=== PATIENT | male | born 1960 | race Caucasian/White ===

== ENCOUNTER 2022-06-16 05:41 | Inpatient (IN) | payer OTHER, MEDICAID ==
[~2022-06-16] VITALS: Ht 182.9 cm; Wt 106.3 kg
[2022-06-16 07:40] LABS: BUN/Creatinine Ratio 26.1; Potassium 4.4 mmol/L (3.5-5.1)
[2022-06-16 07:45] LABS: Total Protein 9.8 g/dL (6.4-8.2)
[2022-06-16 07:46] LABS: Basophils # (auto) 0.1 10 ^3/uL (0-0.2); Eosinophils # (auto) 0 10 ^3/uL (0-0.8); Eosinophils % (auto) 0.2 % (0.0-7.0); Hematocrit 42.4 % (41.0-53.0); Monocytes # (auto) 1.7 10 ^3/uL (0-1.3)
[2022-06-16 07:48] LABS: Basophils % (auto) 0.4 % (0.0-2.0); Hemoglobin 13.5 g/dL (13.5-17.5); Lymphocytes # (auto) 2.2 10 ^3/uL (0.4-5.4); Lymphocytes % (auto) 8.8 % (10.0-50.0); Mean Corpuscular Hgb Conc. 31.9 g/dL (32.0-36.0); Mean Corpuscular Volume 87.8 fL (80.0-100.0); Monocytes % (auto) 7.1 % (0.0-12.0); Neutrophils # (auto) 20.5 10 ^3/uL (1.6-8.6); Neutrophils % (auto) 83.5 % (37.0-80.0); Red Blood Cells 4.83 10^6/uL (4.5-5.90); Red Cell Distribution Width 14.2 % (11.8-14.3); White Blood Cell 24.6 10^3/uL (4.4-10.8)
[2022-06-16 07:49] LABS: Albumin 2.4 g/dL (3.4-5.0)
[2022-06-16] MEDS ORDERED: VANCOMYCIN 1GM/250ML 250 ML IV ONE (09:45)
[2022-06-16] MEDS ORDERED: SODIUM CHLORIDE 0.9% 1,000 ML IVB ONE (09:45)
[2022-06-16] MEDS ORDERED: ASPirin 81 mg TAB PO ONE (09:45)
[2022-06-16] MEDS ORDERED: DEXTROSE (50%) 50ML SYRG IV PRN (14:00)
[2022-06-16] MEDS ORDERED: SODIUM CHLORIDE 0.9% 1,000 ML IV ONE ×2 (14:00)
[2022-06-16] MEDS: PIPERACILLIN-TAZOB 3.375GM 100 ML IV SCH ×2 (14:29→21:44)
[2022-06-16 14:30] LABS: Urine Bacteria MANY /hpf (None Seen); Urine Blood TRACE /uL (Negative); Urine Mucus FEW (None Seen); Urine Specific Gravity 1.023 (1.001-1.035); Urine WBC 20 /hpf (0 - 3)
[2022-06-16 14:58] LABS: Cholesterol 163 mg/dL (< 200); HDL Cholesterol 23 mg/dL (40-59); LDL Cholesterol 115 mg/dL (< 100); Triglycerides 228 mg/dL (< 150)
[2022-06-16 15:10] LABS: INR 1.24 (0.9-1.15)
[2022-06-16 16:52] VITALS: BP 141/80
[2022-06-16] MEDS: ACCU-CHEK COMFORT CURVE STRIP VI SCH ×2 (17:35→22:50)
[2022-06-16] MEDS: InsuLIN REG 1unit/0.01ml Soln (100units/ml) SC SCH ×2 (17:58→22:54)
[2022-06-16 20:00] VITALS: BP 111/53
[2022-06-16 22:00] VITALS: BP 111/53
[2022-06-17 05:00] VITALS: BP 116/45
[2022-06-17] MEDS: PIPERACILLIN-TAZOB 3.375GM 100 ML IV SCH ×3 (05:34→23:27)
[2022-06-17] MEDS: ACCU-CHEK COMFORT CURVE STRIP VI SCH ×4 (06:10→22:29)
[2022-06-17] MEDS: InsuLIN REG 1unit/0.01ml Soln (100units/ml) SC SCH ×4 (06:11→22:33)
[2022-06-17 06:29] LABS: Basophils # (auto) 0.1 10 ^3/uL (0-0.2); Basophils % (auto) 0.5 % (0.0-2.0); Eosinophils # (auto) 0.1 10 ^3/uL (0-0.8); Eosinophils % (auto) 0.5 % (0.0-7.0); Monocytes # (auto) 1.6 10 ^3/uL (0-1.3)
[2022-06-17 06:32] LABS: Hematocrit 38.8 % (41.0-53.0); Hemoglobin 12.7 g/dL (13.5-17.5); Lymphocytes % (auto) 8.9 % (10.0-50.0); Mean Corpuscular Hemoglobin 28.6 pg (28.0-32.0); Mean Corpuscular Hgb Conc. 32.7 g/dL (32.0-36.0); Mean Corpuscular Volume 87.2 fL (80.0-100.0); Monocytes % (auto) 7.3 % (0.0-12.0); Neutrophils # (auto) 18.4 10 ^3/uL (1.6-8.6); Neutrophils % (auto) 82.8 % (37.0-80.0); Red Blood Cells 4.45 10^6/uL (4.5-5.90); White Blood Cell 22.2 10^3/uL (4.4-10.8)
[2022-06-17 06:47] LABS: Chloride 101 mmol/L (98-107); Potassium 3.9 mmol/L (3.5-5.1); Sodium 135 mmol/L (136-145)
[2022-06-17 06:54] LABS: Alanine Aminotransferase 59 U/L (16-61); BUN/Creatinine Ratio 25.9; Blood Urea Nitrogen 28 mg/dL (7-18); Calcium 9.4 mg/dL (8.5-10.1); Carbon Dioxide 24 mmol/L (21-32); GFR African American 89 mL/min; GFR Non-African American 74 mL/min; Glucose 176 mg/dL (74-106)
[2022-06-17 07:01] LABS: Alkaline Phosphatase 129 U/L (45-117); Aspartate Aminotransferase 33 U/L (15-37); Bilirubin, Total 0.7 mg/dL (0.2-1.0); Total Protein 8.8 g/dL (6.4-8.2)
[2022-06-17 08:59] LABS: Anion Gap 10 (5-15)
[2022-06-17 09:00] VITALS: BP 114/53
[2022-06-17] MEDS ORDERED: VANCOMYCIN PER PHARMACY 0 MG IV SCH (10:15)
[2022-06-17] MEDS: ENOXAPARIN SOD 40 MG/0.4 ML SYRINGE SC SCH (11:06)
[2022-06-17] MEDS: VANCOMYCIN 1GM/250ML 250 ML IV SCH ×2 (11:07→20:46)
[2022-06-17 13:00] VITALS: BP 144/60
[2022-06-17 17:00] VITALS: BP 125/81
[2022-06-17 20:00] VITALS: BP 111/53
[2022-06-17 22:00] VITALS: BP 128/68
[2022-06-17] MEDS: MORPHINE SULFATE INJ 2 MG/ml SYRG IV PRN (22:30)
[2022-06-18] MEDS: VANCOMYCIN 1GM/250ML 250 ML IV SCH ×3 (04:45→22:59)
[2022-06-18] MEDS: MORPHINE SULFATE INJ 2 MG/ml SYRG IV PRN ×3 (04:46→20:48)
[2022-06-18 05:00] VITALS: BP 127/73
[2022-06-18 06:22] LABS: Basophils # (auto) 0.1 10 ^3/uL (0-0.2); Basophils % (auto) 0.5 % (0.0-2.0); Eosinophils # (auto) 0.2 10 ^3/uL (0-0.8); Eosinophils % (auto) 1.4 % (0.0-7.0); Hematocrit 33.5 % (41.0-53.0); Hemoglobin 10.8 g/dL (13.5-17.5); Lymphocytes # (auto) 2.3 10 ^3/uL (0.4-5.4); Lymphocytes % (auto) 14.2 % (10.0-50.0); Mean Corpuscular Hemoglobin 27.9 pg (28.0-32.0); Mean Corpuscular Hgb Conc. 32.3 g/dL (32.0-36.0); Mean Corpuscular Volume 86.5 fL (80.0-100.0); Monocytes # (auto) 1.4 10 ^3/uL (0-1.3); Monocytes % (auto) 8.3 % (0.0-12.0); Neutrophils # (auto) 12.3 10 ^3/uL (1.6-8.6); Neutrophils % (auto) 75.6 % (37.0-80.0); Red Blood Cells 3.88 10^6/uL (4.5-5.90); White Blood Cell 16.2 10^3/uL (4.4-10.8)
[2022-06-18] MEDS: PIPERACILLIN-TAZOB 3.375GM 100 ML IV SCH (06:23)
[2022-06-18] MEDS: InsuLIN REG 1unit/0.01ml Soln (100units/ml) SC SCH ×4 (06:23→21:36)
[2022-06-18 06:30] LABS: BUN/Creatinine Ratio 19.6; Calcium 8.9 mg/dL (8.5-10.1); Potassium 3.9 mmol/L (3.5-5.1)
[2022-06-18] MEDS: ACCU-CHEK COMFORT CURVE STRIP VI SCH ×4 (06:58→21:43)
[2022-06-18 09:00] VITALS: BP 128/74
[2022-06-18] MEDS: ENOXAPARIN SOD 40 MG/0.4 ML SYRINGE SC SCH (09:01)
[2022-06-18 13:00] VITALS: BP 150/76
[2022-06-18] MEDS: cefTRIAXone 1GM/50ML D5W 50 ML IV SCH (15:23)
[2022-06-18] MEDS: INSULIN LANTUS (GLARGINE) 1 /0.01ml (100units/ml) SC SCH (16:58)
[2022-06-18 17:00] VITALS: BP 121/68
[2022-06-18] MEDS: ATORVASTATIN 20 MG TAB PO SCH (21:32)
[2022-06-18] MEDS: metroNIDAZOLE 500 MG TAB PO SCH (21:32)
[2022-06-18 22:00] VITALS: BP 117/61
[2022-06-19 05:00] VITALS: BP 119/60
[2022-06-19] MEDS: metroNIDAZOLE 500 MG TAB PO SCH ×3 (06:00→22:27)
[2022-06-19 06:10] LABS: Basophils # (auto) 0.1 10 ^3/uL (0-0.2); Basophils % (auto) 0.4 % (0.0-2.0); Hemoglobin 11.1 g/dL (13.5-17.5); Mean Corpuscular Volume 87.1 fL (80.0-100.0)
[2022-06-19 06:12] LABS: Eosinophils # (auto) 0.2 10 ^3/uL (0-0.8); Eosinophils % (auto) 1.6 % (0.0-7.0); Hematocrit 32.8 % (41.0-53.0); Lymphocytes % (auto) 13.7 % (10.0-50.0); Mean Corpuscular Hemoglobin 29.5 pg (28.0-32.0); Mean Corpuscular Hgb Conc. 33.9 g/dL (32.0-36.0); Monocytes # (auto) 1.3 10 ^3/uL (0-1.3); Monocytes % (auto) 9.3 % (0.0-12.0); Neutrophils # (auto) 10.9 10 ^3/uL (1.6-8.6); Red Blood Cells 3.76 10^6/uL (4.5-5.90); Red Cell Distribution Width 14.4 % (11.8-14.3); White Blood Cell 14.5 10^3/uL (4.4-10.8)
[2022-06-19 06:26] LABS: BUN/Creatinine Ratio 13.8; Calcium 9.4 mg/dL (8.5-10.1); Potassium 4.3 mmol/L (3.5-5.1)
[2022-06-19] MEDS: ACCU-CHEK COMFORT CURVE STRIP VI SCH ×4 (06:28→22:24)
[2022-06-19] MEDS: InsuLIN REG 1unit/0.01ml Soln (100units/ml) SC SCH ×4 (06:44→22:27)
[2022-06-19] MEDS: cefTRIAXone 1GM/50ML D5W 50 ML IV SCH (07:52)
[2022-06-19] MEDS: VANCOMYCIN 1GM/250ML 250 ML IV SCH ×2 (07:55→17:15)
[2022-06-19] MEDS: ENOXAPARIN SOD 40 MG/0.4 ML SYRINGE SC SCH (07:55)
[2022-06-19 09:00] VITALS: BP 146/79
[2022-06-19] MEDS ORDERED: LIDOCAINE 1%HCL (LOCAL ANESTH) 10 ML MDV ONE (09:07)
[2022-06-19] MEDS ORDERED: ROPIVACAINE 0.5% (5MG/ML) 20ML AMPULE IJ ONE (09:07)
[2022-06-19] MEDS ORDERED: MIDAZOLAM HCL 2MG/2ML 2ml VIAL (1mg/ml) ONE (09:24)
[2022-06-19] MEDS ORDERED: fentaNYL CITRATE 100 MCG/2 ML VL ONE (09:24)
[2022-06-19] MEDS ORDERED: LIDOCAINE 2% (LOCAL ANESTH.) PF 5ml SDV ONE (09:25)
[2022-06-19] MEDS ORDERED: PROPOFOL 10 MG/ML 20 ML IV ONE (09:25)
[2022-06-19] MEDS ORDERED: ONDANSETRON HCL 4 MG/2 ML VIAL ONE (09:25)
[2022-06-19] MEDS ORDERED: DAKINS QUARTER STR 0.125% (NaHypochlorite) 473 ML TOPICAL SOL TOP ONE (10:00)
[2022-06-19] MEDS ORDERED: HYDROmorphone HCL 2 MG/ML VL/or syr IV PRN (10:45)
[2022-06-19] MEDS ORDERED: ONDANSETRON HCL 4 MG/2 ML VIAL IV PRN (10:45)
[2022-06-19] MEDS: HYDROmorphone HCL 2 MG/ML VL/or syr IV PRN ×3 (12:05→12:22)
[2022-06-19] MEDS: INSULIN LANTUS (GLARGINE) 1 /0.01ml (100units/ml) SC SCH (13:36)
[2022-06-19] MEDS: MORPHINE SULFATE INJ 2 MG/ml SYRG IV PRN ×3 (15:02→23:45)
[2022-06-19 17:00] VITALS: BP 154/84
[2022-06-19 22:00] VITALS: BP 119/71
[2022-06-19] MEDS: ATORVASTATIN 20 MG TAB PO SCH (22:27)
[2022-06-20] VITALS (10 sets, daily range): BP systolic 119–150; BP diastolic 73–82
[2022-06-20] MEDS: VANCOMYCIN 1GM/250ML 250 ML IV SCH (01:58)
[2022-06-20] MEDS: MORPHINE SULFATE INJ 2 MG/ml SYRG IV PRN ×2 (05:51→23:46)
[2022-06-20] MEDS: metroNIDAZOLE 500 MG TAB PO SCH (06:00)
[2022-06-20] MEDS: InsuLIN REG 1unit/0.01ml Soln (100units/ml) SC SCH ×4 (06:29→23:49)
[2022-06-20] MEDS: ACCU-CHEK COMFORT CURVE STRIP VI SCH ×4 (06:29→23:39)
[2022-06-20 06:45] LABS: Basophils # (auto) 0.1 10 ^3/uL (0-0.2); Basophils % (auto) 0.6 % (0.0-2.0); Eosinophils # (auto) 0.2 10 ^3/uL (0-0.8); Eosinophils % (auto) 1.1 % (0.0-7.0); Hematocrit 31.8 % (41.0-53.0); Hemoglobin 10.6 g/dL (13.5-17.5); Lymphocytes # (auto) 1.8 10 ^3/uL (0.4-5.4); Lymphocytes % (auto) 11.7 % (10.0-50.0); Mean Corpuscular Hemoglobin 28.7 pg (28.0-32.0); Mean Corpuscular Hgb Conc. 33.4 g/dL (32.0-36.0); Monocytes % (auto) 13.2 % (0.0-12.0); Neutrophils # (auto) 11.2 10 ^3/uL (1.6-8.6); Neutrophils % (auto) 73.4 % (37.0-80.0); Red Cell Distribution Width 14.2 % (11.8-14.3); White Blood Cell 15.3 10^3/uL (4.4-10.8)
[2022-06-20 07:15] LABS: BUN/Creatinine Ratio 9.8; Potassium 4.4 mmol/L (3.5-5.1)
[2022-06-20] MEDS: cefTRIAXone 1GM/50ML D5W 50 ML IV SCH (09:00)
[2022-06-20] MEDS: ENOXAPARIN SOD 40 MG/0.4 ML SYRINGE SC SCH (10:00)
[2022-06-20] MEDS: INSULIN LANTUS (GLARGINE) 1 /0.01ml (100units/ml) SC SCH (10:00)
[2022-06-20] MEDS ORDERED: ANGIOMAX 250 MG VIAL IV ONE (14:01)
[2022-06-20] MEDS ORDERED: fentaNYL CITRATE 100 MCG/2 ML VL ONE (14:02)
[2022-06-20] MEDS ORDERED: IOHEXOL 350 MG/ML 100ML IJ ONE (14:02)
[2022-06-20] MEDS ORDERED: LIDOCAINE 2%HCL (LOCAL ANESTH.) INJ 20ML MDV ONE (14:02)
[2022-06-20] MEDS ORDERED: SODIUM CHL 0.9% 0 ML ONE (14:02)
[2022-06-20] MEDS ORDERED: MIDAZOLAM HCL 2MG/2ML 2ml VIAL (1mg/ml) ONE (14:02)
[2022-06-20] MEDS: AMPICILLIN & SULBACTAM SODIUM 3 GM in SODIUM CHL 0.9% 100 ML IV SCH ×2 (16:36→21:00)
[2022-06-20] MEDS: Pro-Stat SF 30ml Vanilla PO SCH (18:00)
[2022-06-20] MEDS: Juven Orange Powder PACKET 27.5gm PO SCH (18:00)
[2022-06-20] MEDS: DAKINS QUARTER STR 0.125% (NaHypochlorite) 473 ML TOPICAL SOL TOP SCH (22:00)
[2022-06-20] MEDS: ATORVASTATIN 20 MG TAB PO SCH (22:00)
[2022-06-21] MEDS: MORPHINE SULFATE INJ 2 MG/ml SYRG IV PRN ×2 (03:20→07:11)
[2022-06-21] MEDS: AMPICILLIN & SULBACTAM SODIUM 3 GM in SODIUM CHL 0.9% 100 ML IV SCH ×4 (03:37→20:54)
[2022-06-21 05:00] VITALS: BP 175/72
[2022-06-21 06:21] LABS: BUN/Creatinine Ratio 11.6; Calcium 9.3 mg/dL (8.5-10.1); Potassium 4.5 mmol/L (3.5-5.1)
[2022-06-21] MEDS: InsuLIN REG 1unit/0.01ml Soln (100units/ml) SC SCH ×4 (06:41→21:57)
[2022-06-21] MEDS: ACCU-CHEK COMFORT CURVE STRIP VI SCH ×4 (06:42→21:56)
[2022-06-21 06:54] LABS: Basophils # (auto) 0.1 10 ^3/uL (0-0.2); Eosinophils # (auto) 0.3 10 ^3/uL (0-0.8); Monocytes # (auto) 1.7 10 ^3/uL (0-1.3)
[2022-06-21 06:56] LABS: Basophils % (auto) 0.5 % (0.0-2.0); Eosinophils % (auto) 1.8 % (0.0-7.0); Hematocrit 31.8 % (41.0-53.0); Hemoglobin 10.9 g/dL (13.5-17.5); Lymphocytes # (auto) 1.6 10 ^3/uL (0.4-5.4); Lymphocytes % (auto) 10.9 % (10.0-50.0); Mean Corpuscular Hemoglobin 29.6 pg (28.0-32.0); Mean Corpuscular Hgb Conc. 34.1 g/dL (32.0-36.0); Mean Corpuscular Volume 86.6 fL (80.0-100.0); Monocytes % (auto) 11.8 % (0.0-12.0); Red Blood Cells 3.67 10^6/uL (4.5-5.90); Red Cell Distribution Width 14.1 % (11.8-14.3); White Blood Cell 14.7 10^3/uL (4.4-10.8)
[2022-06-21] MEDS: Juven Orange Powder PACKET 27.5gm PO SCH ×2 (08:26→18:06)
[2022-06-21] MEDS: Pro-Stat SF 30ml Vanilla PO SCH ×2 (08:27→18:06)
[2022-06-21 09:00] VITALS: BP 122/60
[2022-06-21] MEDS: ASPirin 81 mg TAB PO SCH (10:30)
[2022-06-21] MEDS: DAKINS QUARTER STR 0.125% (NaHypochlorite) 473 ML TOPICAL SOL TOP SCH ×2 (10:30→22:00)
[2022-06-21] MEDS: ENOXAPARIN SOD 40 MG/0.4 ML SYRINGE SC SCH (10:30)
[2022-06-21] MEDS: INSULIN LANTUS (GLARGINE) 1 /0.01ml (100units/ml) SC SCH (10:31)
[2022-06-21] MEDS: HYDROcodone-ACET 5/325MG TAB PO PRN ×2 (10:40→21:05)
[2022-06-21 13:00] VITALS: BP 126/67
[2022-06-21 13:24] LABS: INR 1.12 (0.9-1.15); Partial Thromboplastin Time 32.4 sec (24.6-33.4)
[2022-06-21 16:59] VITALS: BP 106/69
[2022-06-21] MEDS: ATORVASTATIN 20 MG TAB PO SCH (21:56)
[2022-06-21 23:51] VITALS: BP 136/86
[2022-06-22] MEDS: AMPICILLIN & SULBACTAM SODIUM 3 GM in SODIUM CHL 0.9% 100 ML IV SCH ×4 (03:13→20:51)
[2022-06-22] MEDS: HYDROcodone-ACET 5/325MG TAB PO PRN ×3 (04:49→21:10)
[2022-06-22 05:12] LABS: Basophils # (auto) 0.1 10 ^3/uL (0-0.2); Eosinophils # (auto) 0.4 10 ^3/uL (0-0.8); Eosinophils % (auto) 3.5 % (0.0-7.0); Monocytes # (auto) 1.1 10 ^3/uL (0-1.3); Neutrophils # (auto) 8.6 10 ^3/uL (1.6-8.6); White Blood Cell 12.2 10^3/uL (4.4-10.8)
[2022-06-22 05:15] LABS: Basophils % (auto) 0.9 % (0.0-2.0); Hematocrit 31.8 % (41.0-53.0); Hemoglobin 10.5 g/dL (13.5-17.5); Lymphocytes % (auto) 16.1 % (10.0-50.0); Mean Corpuscular Hemoglobin 28.3 pg (28.0-32.0); Mean Corpuscular Hgb Conc. 33.1 g/dL (32.0-36.0); Mean Corpuscular Volume 85.7 fL (80.0-100.0); Monocytes % (auto) 9.2 % (0.0-12.0); Neutrophils % (auto) 70.3 % (37.0-80.0); Red Blood Cells 3.72 10^6/uL (4.5-5.90)
[2022-06-22 05:34] LABS: Calcium 8.6 mg/dL (8.5-10.1); Potassium 4.2 mmol/L (3.5-5.1)
[2022-06-22 05:51] VITALS: BP 155/87
[2022-06-22] MEDS: ACCU-CHEK COMFORT CURVE STRIP VI SCH ×4 (06:38→21:10)
[2022-06-22] MEDS: InsuLIN REG 1unit/0.01ml Soln (100units/ml) SC SCH ×4 (06:38→21:14)
[2022-06-22] MEDS: Pro-Stat SF 30ml Vanilla PO SCH ×2 (08:00→18:00)
[2022-06-22] MEDS: Juven Orange Powder PACKET 27.5gm PO SCH ×2 (08:00→18:00)
[2022-06-22] MEDS: INSULIN LANTUS (GLARGINE) 1 /0.01ml (100units/ml) SC SCH (09:00)
[2022-06-22 09:12] VITALS: BP 143/83
[2022-06-22] MEDS: ASPirin 81 mg TAB PO SCH (09:45)
[2022-06-22] MEDS: ENOXAPARIN SOD 40 MG/0.4 ML SYRINGE SC SCH (09:45)
[2022-06-22] MEDS: DAKINS QUARTER STR 0.125% (NaHypochlorite) 473 ML TOPICAL SOL TOP SCH ×2 (10:00→22:00)
[2022-06-22 12:31] VITALS: BP 137/67
[2022-06-22 16:35] VITALS: BP 153/89
[2022-06-22] MEDS: ATORVASTATIN 20 MG TAB PO SCH (21:12)
[2022-06-22 22:00] VITALS: BP 163/94
[2022-06-23] MEDS: AMPICILLIN & SULBACTAM SODIUM 3 GM in SODIUM CHL 0.9% 100 ML IV SCH ×4 (02:46→21:00)
[2022-06-23] MEDS: HYDROcodone-ACET 5/325MG TAB PO PRN (02:51)
[2022-06-23 05:00] VITALS: BP 162/87
[2022-06-23] MEDS: ACCU-CHEK COMFORT CURVE STRIP VI SCH ×4 (06:02→22:15)
[2022-06-23] MEDS: InsuLIN REG 1unit/0.01ml Soln (100units/ml) SC SCH ×4 (06:02→22:15)
[2022-06-23] MEDS: Juven Orange Powder PACKET 27.5gm PO SCH ×2 (08:00→18:00)
[2022-06-23] MEDS: Pro-Stat SF 30ml Vanilla PO SCH ×2 (08:00→18:00)
[2022-06-23 09:00] VITALS: BP 139/87
[2022-06-23] MEDS: ASPirin 81 mg TAB PO SCH (09:46)
[2022-06-23] MEDS: ENOXAPARIN SOD 40 MG/0.4 ML SYRINGE SC SCH (09:46)
[2022-06-23] MEDS: INSULIN LANTUS (GLARGINE) 1 /0.01ml (100units/ml) SC SCH (09:53)
[2022-06-23] MEDS: DAKINS QUARTER STR 0.125% (NaHypochlorite) 473 ML TOPICAL SOL TOP SCH ×2 (10:00→22:00)
[2022-06-23 13:00] VITALS: BP 145/81
[2022-06-23 16:40] VITALS: BP 149/82
[2022-06-23 22:00] VITALS: BP 123/70
[2022-06-23] MEDS: ATORVASTATIN 20 MG TAB PO SCH (22:14)
[2022-06-24] MEDS: AMPICILLIN & SULBACTAM SODIUM 3 GM in SODIUM CHL 0.9% 100 ML IV SCH ×4 (03:41→21:35)
[2022-06-24 05:00] VITALS: BP 144/80
[2022-06-24] MEDS: ACCU-CHEK COMFORT CURVE STRIP VI SCH ×4 (06:48→21:46)
[2022-06-24] MEDS: InsuLIN REG 1unit/0.01ml Soln (100units/ml) SC SCH ×4 (06:48→21:48)
[2022-06-24 08:00] VITALS: BP 154/84
[2022-06-24] MEDS: Juven Orange Powder PACKET 27.5gm PO SCH ×2 (08:55→17:55)
[2022-06-24] MEDS: Pro-Stat SF 30ml Vanilla PO SCH ×2 (08:56→17:55)
[2022-06-24 09:00] VITALS: BP 154/84
[2022-06-24] MEDS: DAKINS QUARTER STR 0.125% (NaHypochlorite) 473 ML TOPICAL SOL TOP SCH ×2 (09:57→22:43)
[2022-06-24] MEDS: ENOXAPARIN SOD 40 MG/0.4 ML SYRINGE SC SCH (09:57)
[2022-06-24] MEDS: ASPirin 81 mg TAB PO SCH (09:57)
[2022-06-24] MEDS: MORPHINE SULFATE INJ 2 MG/ml SYRG IV PRN ×2 (09:58→21:36)
[2022-06-24] MEDS: INSULIN LANTUS (GLARGINE) 1 /0.01ml (100units/ml) SC SCH (10:01)
[2022-06-24 13:00] VITALS: BP 135/75
[2022-06-24 15:10] LABS: INR 1.08 (0.9-1.15)
[2022-06-24 15:11] LABS: Partial Thromboplastin Time 30.9 sec (24.6-33.4)
[2022-06-24 17:06] VITALS: BP 131/86
[2022-06-24] MEDS: ATORVASTATIN 20 MG TAB PO SCH (21:35)
[2022-06-24 22:00] VITALS: BP 157/93
[2022-06-25] MEDS: AMPICILLIN & SULBACTAM SODIUM 3 GM in SODIUM CHL 0.9% 100 ML IV SCH ×4 (03:01→21:05)
[2022-06-25 05:00] VITALS: BP 155/56
[2022-06-25] MEDS: hydrALAZINE HCL 20 MG/ML VL IV PRN (05:53)
[2022-06-25 06:00] LABS: Basophils # (auto) 0.1 10 ^3/uL (0-0.2); Mean Corpuscular Hemoglobin 27.8 pg (28.0-32.0); White Blood Cell 10.3 10^3/uL (4.4-10.8)
[2022-06-25 06:04] LABS: Basophils % (auto) 1.1 % (0.0-2.0); Eosinophils # (auto) 0.4 10 ^3/uL (0-0.8); Eosinophils % (auto) 3.5 % (0.0-7.0); Hematocrit 32.9 % (41.0-53.0); Hemoglobin 10.7 g/dL (13.5-17.5); Lymphocytes % (auto) 19.8 % (10.0-50.0); Mean Corpuscular Hgb Conc. 32.5 g/dL (32.0-36.0); Mean Corpuscular Volume 85.7 fL (80.0-100.0); Monocytes # (auto) 1.2 10 ^3/uL (0-1.3); Monocytes % (auto) 11.4 % (0.0-12.0); Neutrophils # (auto) 6.6 10 ^3/uL (1.6-8.6); Neutrophils % (auto) 64.2 % (37.0-80.0); Red Blood Cells 3.84 10^6/uL (4.5-5.90)
[2022-06-25 06:15] LABS: BUN/Creatinine Ratio 13.9; Calcium 8.9 mg/dL (8.5-10.1); Potassium 4.3 mmol/L (3.5-5.1)
[2022-06-25] MEDS: InsuLIN REG 1unit/0.01ml Soln (100units/ml) SC SCH ×4 (07:00→22:00)
[2022-06-25] MEDS: ACCU-CHEK COMFORT CURVE STRIP VI SCH ×4 (07:04→22:55)
[2022-06-25] MEDS: Juven Orange Powder PACKET 27.5gm PO SCH ×2 (08:05→17:32)
[2022-06-25] MEDS: Pro-Stat SF 30ml Vanilla PO SCH ×2 (08:05→17:32)
[2022-06-25 09:00] VITALS: BP 140/81
[2022-06-25] MEDS: HYDROcodone-ACET 5/325MG TAB PO PRN ×3 (09:11→20:16)
[2022-06-25] MEDS: ASPirin 81 mg TAB PO SCH (10:17)
[2022-06-25] MEDS: DAKINS QUARTER STR 0.125% (NaHypochlorite) 473 ML TOPICAL SOL TOP SCH ×2 (10:17→22:55)
[2022-06-25] MEDS: ENOXAPARIN SOD 40 MG/0.4 ML SYRINGE SC SCH (10:18)
[2022-06-25] MEDS: INSULIN LANTUS (GLARGINE) 1 /0.01ml (100units/ml) SC SCH (10:23)
[2022-06-25] MEDS: SODIUM CHLORIDE 0.9% 1,000 ML IV SCH ×2 (10:25→20:17)
[2022-06-25 12:41] VITALS: BP_SYST 129
[2022-06-25 17:15] VITALS: BP 150/93
[2022-06-25 22:00] VITALS: BP 142/83
[2022-06-25] MEDS: ATORVASTATIN 20 MG TAB PO SCH (22:27)
[2022-06-26] MEDS: HYDROcodone-ACET 5/325MG TAB PO PRN ×3 (01:59→21:45)
[2022-06-26] MEDS: AMPICILLIN & SULBACTAM SODIUM 3 GM in SODIUM CHL 0.9% 100 ML IV SCH ×4 (02:49→21:32)
[2022-06-26 05:00] VITALS: BP 174/84
[2022-06-26] MEDS: SODIUM CHLORIDE 0.9% 1,000 ML IV SCH ×2 (06:00→15:17)
[2022-06-26] MEDS: ACCU-CHEK COMFORT CURVE STRIP VI SCH ×4 (06:09→22:36)
[2022-06-26] MEDS: InsuLIN REG 1unit/0.01ml Soln (100units/ml) SC SCH ×4 (06:09→22:38)
[2022-06-26 09:00] VITALS: BP 159/87
[2022-06-26 09:27] LABS: Basophils # (auto) 0.1 10 ^3/uL (0-0.2); Basophils % (auto) 0.7 % (0.0-2.0); Eosinophils # (auto) 0.3 10 ^3/uL (0-0.8); Eosinophils % (auto) 4.3 % (0.0-7.0); Hematocrit 31.9 % (41.0-53.0); Hemoglobin 10.4 g/dL (13.5-17.5); Lymphocytes # (auto) 1.5 10 ^3/uL (0.4-5.4); Lymphocytes % (auto) 18.2 % (10.0-50.0); Mean Corpuscular Hemoglobin 28.6 pg (28.0-32.0); Mean Corpuscular Hgb Conc. 32.6 g/dL (32.0-36.0); Mean Corpuscular Volume 87.6 fL (80.0-100.0); Monocytes # (auto) 0.8 10 ^3/uL (0-1.3); Monocytes % (auto) 9.7 % (0.0-12.0); Neutrophils # (auto) 5.4 10 ^3/uL (1.6-8.6); Neutrophils % (auto) 67.1 % (37.0-80.0); Red Blood Cells 3.64 10^6/uL (4.5-5.90); Red Cell Distribution Width 14.1 % (11.8-14.3)
[2022-06-26] MEDS: ASPirin 81 mg TAB PO SCH (09:28)
[2022-06-26] MEDS: ENOXAPARIN SOD 40 MG/0.4 ML SYRINGE SC SCH (09:29)
[2022-06-26] MEDS: DAKINS QUARTER STR 0.125% (NaHypochlorite) 473 ML TOPICAL SOL TOP SCH ×2 (09:38→22:37)
[2022-06-26] MEDS: Juven Orange Powder PACKET 27.5gm PO SCH ×2 (09:38→18:01)
[2022-06-26] MEDS: Pro-Stat SF 30ml Vanilla PO SCH ×2 (09:38→18:01)
[2022-06-26 09:49] LABS: BUN/Creatinine Ratio 14.2; Calcium 7.5 mg/dL (8.5-10.1); Potassium 3.7 mmol/L (3.5-5.1)
[2022-06-26] MEDS: INSULIN LANTUS (GLARGINE) 1 /0.01ml (100units/ml) SC SCH (10:34)
[2022-06-26 13:00] VITALS: BP 162/86
[2022-06-26 17:09] VITALS: BP 141/84
[2022-06-26] MEDS ORDERED: LIDOCAINE 1% (LOCAL ANESTH.) PF 5ml SDV ID ONE (17:45)
[2022-06-26] MEDS: SODIUM CHLOR 0.9% PF (SALINE LOCK) 10ML VIAL/SYR IV SCH (21:44)
[2022-06-26] MEDS: ATORVASTATIN 20 MG TAB PO SCH (21:44)
[2022-06-26 22:00] VITALS: BP 157/85
[2022-06-27] MEDS: AMPICILLIN & SULBACTAM SODIUM 3 GM in SODIUM CHL 0.9% 100 ML IV SCH ×4 (02:52→21:02)
[2022-06-27] MEDS: SODIUM CHLORIDE 0.9% 1,000 ML IV SCH ×3 (03:57→21:02)
[2022-06-27 04:58] VITALS: BP 151/66
[2022-06-27 05:15] LABS: Basophils # (auto) 0.1 10 ^3/uL (0-0.2); Basophils % (auto) 0.8 % (0.0-2.0); Eosinophils # (auto) 0.5 10 ^3/uL (0-0.8); Eosinophils % (auto) 4.9 % (0.0-7.0); Hematocrit 33.9 % (41.0-53.0); Hemoglobin 11.1 g/dL (13.5-17.5); Mean Corpuscular Hgb Conc. 32.8 g/dL (32.0-36.0); Mean Corpuscular Volume 85.3 fL (80.0-100.0); Monocytes # (auto) 1.1 10 ^3/uL (0-1.3); Monocytes % (auto) 11.1 % (0.0-12.0); Neutrophils % (auto) 62.2 % (37.0-80.0); Red Blood Cells 3.97 10^6/uL (4.5-5.90); Red Cell Distribution Width 13.8 % (11.8-14.3); White Blood Cell 9.7 10^3/uL (4.4-10.8)
[2022-06-27 05:27] LABS: BUN/Creatinine Ratio 13.3; Calcium 8.7 mg/dL (8.5-10.1); Potassium 4.2 mmol/L (3.5-5.1)
[2022-06-27] MEDS: ACCU-CHEK COMFORT CURVE STRIP VI SCH ×4 (05:48→21:02)
[2022-06-27] MEDS: InsuLIN REG 1unit/0.01ml Soln (100units/ml) SC SCH ×4 (05:49→21:02)
[2022-06-27 08:51] VITALS: BP 158/87
[2022-06-27] MEDS: ENOXAPARIN SOD 40 MG/0.4 ML SYRINGE SC SCH (09:47)
[2022-06-27] MEDS: ASPirin 81 mg TAB PO SCH (09:47)
[2022-06-27] MEDS: HYDROcodone-ACET 5/325MG TAB PO PRN ×3 (09:48→21:51)
[2022-06-27] MEDS: Juven Orange Powder PACKET 27.5gm PO SCH ×2 (09:49→16:56)
[2022-06-27] MEDS: Pro-Stat SF 30ml Vanilla PO SCH ×2 (09:49→16:56)
[2022-06-27] MEDS: DAKINS QUARTER STR 0.125% (NaHypochlorite) 473 ML TOPICAL SOL TOP SCH ×2 (09:49→21:02)
[2022-06-27] MEDS: SODIUM CHLOR 0.9% PF (SALINE LOCK) 10ML VIAL/SYR IV SCH ×2 (09:49→21:02)
[2022-06-27] MEDS: INSULIN LANTUS (GLARGINE) 1 /0.01ml (100units/ml) SC SCH (10:00)
[2022-06-27] MEDS ORDERED: FLUCONAZOLE 200MG/100ML 100 ML IV ONE (12:00)
[2022-06-27 12:41] VITALS: BP 146/82
[2022-06-27 16:20] VITALS: BP 160/88
[2022-06-27] MEDS: ATORVASTATIN 20 MG TAB PO SCH (21:02)
[2022-06-27] MEDS: hydrALAZINE HCL 20 MG/ML VL IV PRN (21:51)
[2022-06-27 22:02] VITALS: BP 157/84
[2022-06-28] MEDS: AMPICILLIN & SULBACTAM SODIUM 3 GM in SODIUM CHL 0.9% 100 ML IV SCH ×2 (02:30→08:49)
[2022-06-28 05:33] LABS: Red Cell Distribution Width 13.9 % (11.8-14.3)
[2022-06-28 05:34] LABS: Basophils # (auto) 0.1 10 ^3/uL (0-0.2); Basophils % (auto) 0.8 % (0.0-2.0); Eosinophils # (auto) 0.4 10 ^3/uL (0-0.8); Eosinophils % (auto) 5.4 % (0.0-7.0); Hematocrit 32.3 % (41.0-53.0); Hemoglobin 10.7 g/dL (13.5-17.5); Lymphocytes # (auto) 1.8 10 ^3/uL (0.4-5.4); Lymphocytes % (auto) 22.5 % (10.0-50.0); Mean Corpuscular Hemoglobin 28.5 pg (28.0-32.0); Mean Corpuscular Hgb Conc. 33.2 g/dL (32.0-36.0); Mean Corpuscular Volume 85.8 fL (80.0-100.0); Monocytes # (auto) 0.9 10 ^3/uL (0-1.3); Monocytes % (auto) 11.2 % (0.0-12.0); Neutrophils # (auto) 4.9 10 ^3/uL (1.6-8.6); Neutrophils % (auto) 60.1 % (37.0-80.0); Red Blood Cells 3.77 10^6/uL (4.5-5.90); White Blood Cell 8.1 10^3/uL (4.4-10.8)
[2022-06-28 05:44] VITALS: BP 139/93
[2022-06-28 05:46] LABS: Calcium 8.8 mg/dL (8.5-10.1); Potassium 4.2 mmol/L (3.5-5.1)
[2022-06-28] MEDS: ACCU-CHEK COMFORT CURVE STRIP VI SCH ×4 (06:33→22:08)
[2022-06-28] MEDS: InsuLIN REG 1unit/0.01ml Soln (100units/ml) SC SCH ×4 (06:33→22:00)
[2022-06-28] MEDS: Juven Orange Powder PACKET 27.5gm PO SCH ×2 (08:43→18:00)
[2022-06-28] MEDS: SODIUM CHLORIDE 0.9% 1,000 ML IV SCH ×2 (08:43→18:09)
[2022-06-28] MEDS: Pro-Stat SF 30ml Vanilla PO SCH ×2 (08:43→18:00)
[2022-06-28] MEDS: ENOXAPARIN SOD 40 MG/0.4 ML SYRINGE SC SCH (08:49)
[2022-06-28] MEDS: ASPirin 81 mg TAB PO SCH (08:49)
[2022-06-28] MEDS: HYDROcodone-ACET 5/325MG TAB PO PRN ×3 (08:50→22:08)
[2022-06-28] MEDS: SODIUM CHLOR 0.9% PF (SALINE LOCK) 10ML VIAL/SYR IV SCH ×2 (08:54→22:08)
[2022-06-28] MEDS: INSULIN LANTUS (GLARGINE) 1 /0.01ml (100units/ml) SC SCH (08:54)
[2022-06-28] MEDS: DAKINS QUARTER STR 0.125% (NaHypochlorite) 473 ML TOPICAL SOL TOP SCH ×2 (08:55→22:08)
[2022-06-28 09:00] VITALS: BP 171/87
[2022-06-28] MEDS ORDERED: FLUCONAZOLE 100 MG TAB PO ONE (09:45)
[2022-06-28] MEDS ORDERED: FLUCONAZOLE 100 MG TAB PO SCH (10:00)
[2022-06-28 13:10] VITALS: BP 153/84
[2022-06-28] MEDS: metroNIDAZOLE 500 MG TAB PO SCH ×2 (13:36→22:08)
[2022-06-28] MEDS: ceFAZolin 2 GM in D5W 5% 100 ML IV SCH ×2 (13:44→22:08)
[2022-06-28 16:51] VITALS: BP 149/80
[2022-06-28] MEDS: ATORVASTATIN 20 MG TAB PO SCH (22:08)
[2022-06-28] MEDS: hydrALAZINE HCL 20 MG/ML VL IV PRN (22:09)
[2022-06-28 22:40] VITALS: BP 170/79
[2022-06-28 23:14] VITALS: BP 161/85
[2022-06-29] MEDS: HYDROcodone-ACET 5/325MG TAB PO PRN ×3 (02:12→21:47)
[2022-06-29] MEDS: SODIUM CHLORIDE 0.9% 1,000 ML IV SCH ×3 (03:34→17:09)
[2022-06-29 05:18] VITALS: BP 156/84
[2022-06-29] MEDS: metroNIDAZOLE 500 MG TAB PO SCH ×3 (05:39→21:47)
[2022-06-29] MEDS: ceFAZolin 2 GM in D5W 5% 100 ML IV SCH ×3 (05:39→21:49)
[2022-06-29] MEDS: ACCU-CHEK COMFORT CURVE STRIP VI SCH ×4 (06:05→21:35)
[2022-06-29] MEDS: InsuLIN REG 1unit/0.01ml Soln (100units/ml) SC SCH ×4 (06:06→21:37)
[2022-06-29 06:07] LABS: Basophils # (auto) 0.1 10 ^3/uL (0-0.2); Basophils % (auto) 0.8 % (0.0-2.0); Eosinophils # (auto) 0.5 10 ^3/uL (0-0.8); Eosinophils % (auto) 5.8 % (0.0-7.0); Hematocrit 30.8 % (41.0-53.0); Hemoglobin 10.1 g/dL (13.5-17.5); Lymphocytes # (auto) 2.1 10 ^3/uL (0.4-5.4); Lymphocytes % (auto) 25.7 % (10.0-50.0); Mean Corpuscular Hemoglobin 27.9 pg (28.0-32.0); Mean Corpuscular Volume 84.8 fL (80.0-100.0); Monocytes % (auto) 11.8 % (0.0-12.0); Neutrophils # (auto) 4.6 10 ^3/uL (1.6-8.6); Neutrophils % (auto) 55.9 % (37.0-80.0); Nucleated Red Blood Cells % 0.1 %; Red Blood Cells 3.63 10^6/uL (4.5-5.90); Red Cell Distribution Width 13.9 % (11.8-14.3); White Blood Cell 8.1 10^3/uL (4.4-10.8)
[2022-06-29 06:29] LABS: BUN/Creatinine Ratio 12.5; Calcium 8.7 mg/dL (8.5-10.1)
[2022-06-29 07:50] VITALS: BP 145/81
[2022-06-29] MEDS: Juven Orange Powder PACKET 27.5gm PO SCH ×2 (08:00→17:08)
[2022-06-29] MEDS: Pro-Stat SF 30ml Vanilla PO SCH ×2 (08:00→17:08)
[2022-06-29 09:00] VITALS: BP 145/81
[2022-06-29] MEDS: ASPirin 81 mg TAB PO SCH (09:46)
[2022-06-29] MEDS: DAKINS QUARTER STR 0.125% (NaHypochlorite) 473 ML TOPICAL SOL TOP SCH ×2 (09:49→21:49)
[2022-06-29] MEDS: SODIUM CHLOR 0.9% PF (SALINE LOCK) 10ML VIAL/SYR IV SCH ×2 (09:55→21:46)
[2022-06-29] MEDS: INSULIN LANTUS (GLARGINE) 1 /0.01ml (100units/ml) SC SCH (10:04)
[2022-06-29 13:00] VITALS: BP 150/80
[2022-06-29] MEDS: hydrALAZINE HCL 20 MG/ML VL IV PRN ×2 (17:07→23:18)
[2022-06-29 17:24] VITALS: BP 162/88
[2022-06-29] MEDS: ATORVASTATIN 20 MG TAB PO SCH (21:48)
[2022-06-29 22:52] VITALS: BP 152/88
[2022-06-30] MEDS: SODIUM CHLORIDE 0.9% 1,000 ML IV SCH (04:02)
[2022-06-30 05:57] VITALS: BP 154/83
[2022-06-30] MEDS: ceFAZolin 2 GM in D5W 5% 100 ML IV SCH ×3 (06:22→22:25)
[2022-06-30] MEDS: metroNIDAZOLE 500 MG TAB PO SCH ×3 (06:23→22:24)
[2022-06-30] MEDS: ACCU-CHEK COMFORT CURVE STRIP VI SCH ×4 (06:28→22:13)
[2022-06-30] MEDS: InsuLIN REG 1unit/0.01ml Soln (100units/ml) SC SCH ×4 (06:28→22:20)
[2022-06-30 07:08] LABS: Basophils # (auto) 0.1 10 ^3/uL (0-0.2); Eosinophils # (auto) 0.5 10 ^3/uL (0-0.8); Hematocrit 31.9 % (41.0-53.0); Hemoglobin 10.5 g/dL (13.5-17.5); Lymphocytes # (auto) 1.7 10 ^3/uL (0.4-5.4); Lymphocytes % (auto) 18.3 % (10.0-50.0); Mean Corpuscular Hemoglobin 27.7 pg (28.0-32.0); Mean Corpuscular Hgb Conc. 32.9 g/dL (32.0-36.0); Mean Corpuscular Volume 84.4 fL (80.0-100.0); Monocytes # (auto) 0.9 10 ^3/uL (0-1.3); Neutrophils # (auto) 6.1 10 ^3/uL (1.6-8.6); Neutrophils % (auto) 65.7 % (37.0-80.0); Red Blood Cells 3.78 10^6/uL (4.5-5.90); Red Cell Distribution Width 14.4 % (11.8-14.3); White Blood Cell 9.3 10^3/uL (4.4-10.8)
[2022-06-30 07:21] LABS: BUN/Creatinine Ratio 11.4; Calcium 8.5 mg/dL (8.5-10.1); Potassium 4.5 mmol/L (3.5-5.1)
[2022-06-30] MEDS: Juven Orange Powder PACKET 27.5gm PO SCH ×2 (07:38→17:04)
[2022-06-30] MEDS: Pro-Stat SF 30ml Vanilla PO SCH ×2 (07:38→17:04)
[2022-06-30 08:51] VITALS: BP 167/89
[2022-06-30] MEDS: SODIUM CHLOR 0.9% PF (SALINE LOCK) 10ML VIAL/SYR IV SCH ×2 (09:59→22:24)
[2022-06-30] MEDS: DAKINS QUARTER STR 0.125% (NaHypochlorite) 473 ML TOPICAL SOL TOP SCH ×2 (10:30→22:26)
[2022-06-30] MEDS: INSULIN LANTUS (GLARGINE) 1 /0.01ml (100units/ml) SC SCH (10:30)
[2022-06-30] MEDS: ASPirin 81 mg TAB PO SCH (10:42)
[2022-06-30] MEDS: LISINOPRIL 5 MG TAB PO SCH (10:43)
[2022-06-30] MEDS: hydrALAZINE HCL 20 MG/ML VL IV PRN ×2 (10:43→23:32)
[2022-06-30 13:08] VITALS: BP 143/62
[2022-06-30 17:00] VITALS: BP 149/80
[2022-06-30] MEDS: ATORVASTATIN 20 MG TAB PO SCH (22:24)
[2022-06-30 23:57] VITALS: BP 163/86
[2022-07-01] MEDS: ACETAMINOPHEN 325 MG TAB PO PRN (04:07)
[2022-07-01] MEDS: ceFAZolin 2 GM in D5W 5% 100 ML IV SCH ×3 (05:30→23:33)
[2022-07-01] MEDS: metroNIDAZOLE 500 MG TAB PO SCH ×2 (06:00→14:00)
[2022-07-01 06:04] VITALS: BP 155/76
[2022-07-01] MEDS: InsuLIN REG 1unit/0.01ml Soln (100units/ml) SC SCH ×4 (06:17→21:43)
[2022-07-01] MEDS: ACCU-CHEK COMFORT CURVE STRIP VI SCH ×4 (06:17→21:42)
[2022-07-01 06:43] LABS: Basophils # (auto) 0.1 10 ^3/uL (0-0.2); Eosinophils # (auto) 0.4 10 ^3/uL (0-0.8); Neutrophils # (auto) 4.3 10 ^3/uL (1.6-8.6); White Blood Cell 7.5 10^3/uL (4.4-10.8)
[2022-07-01 06:44] LABS: Basophils % (auto) 1.5 % (0.0-2.0); Eosinophils % (auto) 5.7 % (0.0-7.0); Hematocrit 32.6 % (41.0-53.0); Hemoglobin 10.9 g/dL (13.5-17.5); Lymphocytes # (auto) 1.8 10 ^3/uL (0.4-5.4); Lymphocytes % (auto) 24.4 % (10.0-50.0); Mean Corpuscular Hemoglobin 28.3 pg (28.0-32.0); Mean Corpuscular Hgb Conc. 33.5 g/dL (32.0-36.0); Mean Corpuscular Volume 84.4 fL (80.0-100.0); Monocytes # (auto) 0.9 10 ^3/uL (0-1.3); Monocytes % (auto) 11.5 % (0.0-12.0); Neutrophils % (auto) 56.9 % (37.0-80.0); Red Blood Cells 3.87 10^6/uL (4.5-5.90); Red Cell Distribution Width 14.3 % (11.8-14.3)
[2022-07-01 06:55] LABS: BUN/Creatinine Ratio 10.9; Calcium 8.8 mg/dL (8.5-10.1); Potassium 4.2 mmol/L (3.5-5.1)
[2022-07-01] MEDS: Pro-Stat SF 30ml Vanilla PO SCH ×2 (08:46→16:36)
[2022-07-01] MEDS: Juven Orange Powder PACKET 27.5gm PO SCH ×2 (08:46→16:36)
[2022-07-01] MEDS: SODIUM CHLOR 0.9% PF (SALINE LOCK) 10ML VIAL/SYR IV SCH ×2 (08:56→21:41)
[2022-07-01 09:04] VITALS: BP 167/90
[2022-07-01] MEDS: hydrALAZINE HCL 20 MG/ML VL IV PRN ×2 (09:27→17:15)
[2022-07-01] MEDS: LISINOPRIL 5 MG TAB PO SCH (09:27)
[2022-07-01] MEDS: ASPirin 81 mg TAB PO SCH (09:27)
[2022-07-01] MEDS: DAKINS QUARTER STR 0.125% (NaHypochlorite) 473 ML TOPICAL SOL TOP SCH ×2 (09:28→21:42)
[2022-07-01] MEDS: INSULIN LANTUS (GLARGINE) 1 /0.01ml (100units/ml) SC SCH (10:00)
[2022-07-01] MEDS ORDERED: LISINOPRIL 5 MG TAB PO ONE (10:45)
[2022-07-01 13:00] VITALS: BP 137/72
[2022-07-01] MEDS ORDERED: PANTOPRAZOLE 40 MG TAB PO ONE (15:30)
[2022-07-01 17:00] VITALS: BP 110/69
[2022-07-01 18:03] VITALS: BP 167/86
[2022-07-01] MEDS ORDERED: cloNIDine HCL 0.1 MG TAB PO ONE (18:15)
[2022-07-01] MEDS: ATORVASTATIN 20 MG TAB PO SCH (21:41)
[2022-07-01 22:00] VITALS: BP 158/88
[2022-07-01] MEDS: metroNIDAZOLE 500MG/100ML 100 ML IV SCH (22:02)
[2022-07-02 05:00] VITALS: BP 158/92
[2022-07-02 05:39] LABS: Basophils # (auto) 0 10 ^3/uL (0-0.2); Eosinophils # (auto) 0.4 10 ^3/uL (0-0.8); Monocytes # (auto) 0.9 10 ^3/uL (0-1.3); Monocytes % (auto) 11.2 % (0.0-12.0); Neutrophils # (auto) 4.3 10 ^3/uL (1.6-8.6)
[2022-07-02 05:41] LABS: Basophils % (auto) 0.4 % (0.0-2.0); Eosinophils % (auto) 5.2 % (0.0-7.0); Hematocrit 32.4 % (41.0-53.0); Hemoglobin 11.2 g/dL (13.5-17.5); Lymphocytes # (auto) 2.2 10 ^3/uL (0.4-5.4); Lymphocytes % (auto) 28.3 % (10.0-50.0); Mean Corpuscular Hemoglobin 29.1 pg (28.0-32.0); Mean Corpuscular Hgb Conc. 34.5 g/dL (32.0-36.0); Mean Corpuscular Volume 84.4 fL (80.0-100.0); Neutrophils % (auto) 54.9 % (37.0-80.0); Red Blood Cells 3.84 10^6/uL (4.5-5.90); Red Cell Distribution Width 14.3 % (11.8-14.3); White Blood Cell 7.8 10^3/uL (4.4-10.8)
[2022-07-02] MEDS: ceFAZolin 2 GM in D5W 5% 100 ML IV SCH ×3 (05:50→22:50)
[2022-07-02 05:59] LABS: Potassium 4.2 mmol/L (3.5-5.1)
[2022-07-02 06:02] LABS: BUN/Creatinine Ratio 12.6
[2022-07-02] MEDS: ACCU-CHEK COMFORT CURVE STRIP VI SCH ×4 (06:26→22:53)
[2022-07-02] MEDS: InsuLIN REG 1unit/0.01ml Soln (100units/ml) SC SCH ×4 (06:27→22:52)
[2022-07-02] MEDS: Pro-Stat SF 30ml Vanilla PO SCH ×2 (08:31→18:16)
[2022-07-02] MEDS: Juven Orange Powder PACKET 27.5gm PO SCH ×2 (08:31→18:17)
[2022-07-02 09:00] VITALS: BP 167/94
[2022-07-02] MEDS: LISINOPRIL 5 MG TAB PO SCH (09:29)
[2022-07-02] MEDS: ASPirin 81 mg TAB PO SCH (09:29)
[2022-07-02] MEDS: PANTOPRAZOLE 40 MG TAB PO SCH (09:30)
[2022-07-02] MEDS: metroNIDAZOLE 500MG/100ML 100 ML IV SCH (09:30)
[2022-07-02] MEDS ORDERED: amLODIPine BESYLATE 5 MG TAB PO ONE (09:45)
[2022-07-02] MEDS: SODIUM CHLOR 0.9% PF (SALINE LOCK) 10ML VIAL/SYR IV SCH ×2 (10:00→22:50)
[2022-07-02] MEDS: INSULIN LANTUS (GLARGINE) 1 /0.01ml (100units/ml) SC SCH (10:30)
[2022-07-02 13:00] VITALS: BP 151/91
[2022-07-02 13:02] VITALS: BP 143/78
[2022-07-02 16:18] VITALS: BP 122/53
[2022-07-02] MEDS: DAKINS QUARTER STR 0.125% (NaHypochlorite) 473 ML TOPICAL SOL TOP SCH ×3 (17:15→23:38)
[2022-07-02 22:00] VITALS: BP 133/78
[2022-07-02] MEDS: ATORVASTATIN 20 MG TAB PO SCH (22:51)
[2022-07-03] MEDS: metroNIDAZOLE 500MG/100ML 100 ML IV SCH ×3 (00:36→22:33)
[2022-07-03 05:00] VITALS: BP 138/80
[2022-07-03 05:56] LABS: Basophils # (auto) 0.2 10 ^3/uL (0-0.2); Eosinophils # (auto) 0.4 10 ^3/uL (0-0.8); Eosinophils % (auto) 5.8 % (0.0-7.0); Monocytes # (auto) 0.9 10 ^3/uL (0-1.3); Neutrophils # (auto) 3.7 10 ^3/uL (1.6-8.6); Nucleated Red Blood Cells % 0.1 %; Red Cell Distribution Width 14.5 % (11.8-14.3); White Blood Cell 7.6 10^3/uL (4.4-10.8)
[2022-07-03 05:59] LABS: Basophils % (auto) 2.3 % (0.0-2.0); Hematocrit 32.5 % (41.0-53.0); Hemoglobin 10.7 g/dL (13.5-17.5); Lymphocytes # (auto) 2.4 10 ^3/uL (0.4-5.4); Lymphocytes % (auto) 31.3 % (10.0-50.0); Mean Corpuscular Hemoglobin 27.8 pg (28.0-32.0); Mean Corpuscular Hgb Conc. 32.9 g/dL (32.0-36.0); Mean Corpuscular Volume 84.4 fL (80.0-100.0); Monocytes % (auto) 11.7 % (0.0-12.0); Neutrophils % (auto) 48.9 % (37.0-80.0); Red Blood Cells 3.86 10^6/uL (4.5-5.90)
[2022-07-03 06:20] LABS: BUN/Creatinine Ratio 16.2; Calcium 8.6 mg/dL (8.5-10.1); Potassium 4.4 mmol/L (3.5-5.1)
[2022-07-03] MEDS: ACCU-CHEK COMFORT CURVE STRIP VI SCH ×4 (06:20→21:33)
[2022-07-03] MEDS: InsuLIN REG 1unit/0.01ml Soln (100units/ml) SC SCH ×4 (06:29→21:34)
[2022-07-03] MEDS: ceFAZolin 2 GM in D5W 5% 100 ML IV SCH ×3 (06:30→20:55)
[2022-07-03 08:05] VITALS: BP 147/87
[2022-07-03] MEDS: Pro-Stat SF 30ml Vanilla PO SCH ×2 (08:15→18:35)
[2022-07-03] MEDS: Juven Orange Powder PACKET 27.5gm PO SCH ×2 (08:15→18:35)
[2022-07-03 08:30] VITALS: BP 147/87
[2022-07-03] MEDS: amLODIPine BESYLATE 5 MG TAB PO SCH (10:19)
[2022-07-03] MEDS: SODIUM CHLOR 0.9% PF (SALINE LOCK) 10ML VIAL/SYR IV SCH ×2 (10:19→21:00)
[2022-07-03] MEDS: PANTOPRAZOLE 40 MG TAB PO SCH (10:19)
[2022-07-03] MEDS: ASPirin 81 mg TAB PO SCH (10:19)
[2022-07-03] MEDS: DAKINS QUARTER STR 0.125% (NaHypochlorite) 473 ML TOPICAL SOL TOP SCH ×2 (10:20→21:03)
[2022-07-03] MEDS: LISINOPRIL 5 MG TAB PO SCH (10:20)
[2022-07-03] MEDS: INSULIN LANTUS (GLARGINE) 1 /0.01ml (100units/ml) SC SCH (10:25)
[2022-07-03 13:00] VITALS: BP 132/64
[2022-07-03 16:00] VITALS: BP 141/73
[2022-07-03] MEDS: ATORVASTATIN 20 MG TAB PO SCH (20:55)
[2022-07-03 22:00] VITALS: BP 147/95
[2022-07-04] MEDS: ACETAMINOPHEN 325 MG TAB PO PRN (01:05)
[2022-07-04 05:00] VITALS: BP 136/76
[2022-07-04] MEDS: ceFAZolin 2 GM in D5W 5% 100 ML IV SCH ×3 (05:32→21:12)
[2022-07-04] MEDS: ACCU-CHEK COMFORT CURVE STRIP VI SCH ×4 (06:32→22:21)
[2022-07-04] MEDS: InsuLIN REG 1unit/0.01ml Soln (100units/ml) SC SCH ×4 (06:32→22:22)
[2022-07-04 06:57] LABS: Eosinophils # (auto) 0.5 10 ^3/uL (0-0.8); Hemoglobin 10.6 g/dL (13.5-17.5); Lymphocytes # (auto) 2.6 10 ^3/uL (0.4-5.4); Nucleated Red Blood Cells % 0.1 %
[2022-07-04 06:59] LABS: Basophils # (auto) 0.2 10 ^3/uL (0-0.2); Basophils % (auto) 2.7 % (0.0-2.0); Eosinophils % (auto) 6.4 % (0.0-7.0); Hematocrit 32.5 % (41.0-53.0); Lymphocytes % (auto) 32.5 % (10.0-50.0); Mean Corpuscular Hemoglobin 27.7 pg (28.0-32.0); Mean Corpuscular Hgb Conc. 32.7 g/dL (32.0-36.0); Mean Corpuscular Volume 84.6 fL (80.0-100.0); Monocytes # (auto) 0.9 10 ^3/uL (0-1.3); Monocytes % (auto) 11.6 % (0.0-12.0); Neutrophils # (auto) 3.8 10 ^3/uL (1.6-8.6); Neutrophils % (auto) 46.8 % (37.0-80.0); Red Blood Cells 3.84 10^6/uL (4.5-5.90); Red Cell Distribution Width 14.3 % (11.8-14.3)
[2022-07-04 07:01] LABS: BUN/Creatinine Ratio 17.1; Calcium 8.5 mg/dL (8.5-10.1); Potassium 4.5 mmol/L (3.5-5.1)
[2022-07-04] MEDS: Juven Orange Powder PACKET 27.5gm PO SCH ×2 (08:00→18:00)
[2022-07-04] MEDS: Pro-Stat SF 30ml Vanilla PO SCH ×2 (08:00→18:00)
[2022-07-04 09:21] VITALS: BP 143/67
[2022-07-04] MEDS: metroNIDAZOLE 500MG/100ML 100 ML IV SCH ×2 (09:59→22:20)
[2022-07-04] MEDS: SODIUM CHLOR 0.9% PF (SALINE LOCK) 10ML VIAL/SYR IV SCH ×2 (09:59→21:13)
[2022-07-04] MEDS: ASPirin 81 mg TAB PO SCH (09:59)
[2022-07-04] MEDS: PANTOPRAZOLE 40 MG TAB PO SCH (10:00)
[2022-07-04] MEDS: LISINOPRIL 5 MG TAB PO SCH (10:00)
[2022-07-04] MEDS: amLODIPine BESYLATE 5 MG TAB PO SCH (10:00)
[2022-07-04] MEDS: DAKINS QUARTER STR 0.125% (NaHypochlorite) 473 ML TOPICAL SOL TOP SCH ×2 (10:00→22:21)
[2022-07-04] MEDS: INSULIN LANTUS (GLARGINE) 1 /0.01ml (100units/ml) SC SCH (10:11)
[2022-07-04 13:19] VITALS: BP 158/80
[2022-07-04 16:45] VITALS: BP 171/89
[2022-07-04] MEDS: ATORVASTATIN 20 MG TAB PO SCH (21:12)
[2022-07-04 22:00] VITALS: BP 155/89
[2022-07-05 05:00] VITALS: BP 152/84
[2022-07-05] MEDS: ceFAZolin 2 GM in D5W 5% 100 ML IV SCH ×2 (05:23→16:12)
[2022-07-05] MEDS: InsuLIN REG 1unit/0.01ml Soln (100units/ml) SC SCH ×3 (06:21→17:14)
[2022-07-05] MEDS: ACCU-CHEK COMFORT CURVE STRIP VI SCH ×3 (06:21→17:14)
[2022-07-05 09:00] VITALS: BP 152/85
[2022-07-05] MEDS ORDERED: INSLANTI SC (10:35)
[2022-07-05] MEDS ORDERED: INSREGI SC (10:35)
[2022-07-05] MEDS ORDERED: AMOX500T86 PO (10:35)
[2022-07-05] MEDS ORDERED: ATOR20TA50 PO (10:36)
[2022-07-05] MEDS ORDERED: ASPI-325 PO (10:36)
[2022-07-05] MEDS ORDERED: AML5T PO (10:36)
[2022-07-05] MEDS: Pro-Stat SF 30ml Vanilla PO SCH ×2 (10:59→17:59)
[2022-07-05] MEDS: Juven Orange Powder PACKET 27.5gm PO SCH ×2 (10:59→17:59)
[2022-07-05] MEDS: DAKINS QUARTER STR 0.125% (NaHypochlorite) 473 ML TOPICAL SOL TOP SCH (10:59)
[2022-07-05] MEDS: SODIUM CHLOR 0.9% PF (SALINE LOCK) 10ML VIAL/SYR IV SCH (10:59)
[2022-07-05] MEDS: ASPirin 81 mg TAB PO SCH (11:04)
[2022-07-05] MEDS: metroNIDAZOLE 500MG/100ML 100 ML IV SCH (11:04)
[2022-07-05] MEDS: PANTOPRAZOLE 40 MG TAB PO SCH (11:04)
[2022-07-05] MEDS: LISINOPRIL 5 MG TAB PO SCH (11:05)
[2022-07-05] MEDS: INSULIN LANTUS (GLARGINE) 1 /0.01ml (100units/ml) SC SCH (11:28)
[2022-07-05] MEDS: amLODIPine BESYLATE 5 MG TAB PO SCH (11:57)
[2022-07-05 13:00] VITALS: BP 136/83
[2022-07-05 14:07] VITALS: BP 152/85
[2022-07-05 17:00] VITALS: BP 143/76
[2022-07-05 17:01] VITALS: BP 143/76
== END 2022-07-05 18:10 | disposition home or self-care (01) | DRG 853 ==
LOC: ER 05:41 → OVERFLOW 14:14 → CENTRAL 15:00 → TELE-CENTR 07-02 09:42 → TELE-WESTW 07-02 13:14
PROVIDERS: ADMIT Registered Nurse; ATTEND Internal Medicine Pulmonary Disease
PROC: 0Y6M0Z0 Detachment at Right Foot, Complete, Open Approach (ICD-10-PCS; principal; 2022-06-19 09:38)
PROC: B41G1ZZ Fluoroscopy of Left Lower Extremity Arteries using Low Osmolar Contrast (ICD-10-PCS; 2022-06-20)
PROC: B41F1ZZ Fluoroscopy of Right Lower Extremity Arteries using Low Osmolar Contrast (ICD-10-PCS; 2022-06-20)
DX: A41.9 Sepsis, unspecified organism (principal); A48.0 Gas gangrene; E43 Unspecified severe protein-calorie malnutrition; N17.0 Acute kidney failure with tubular necrosis; E11.52 Type 2 diabetes mellitus with diabetic peripheral angiopathy with gangrene; L03.115 Cellulitis of right lower limb; L97.518 Non-pressure chronic ulcer of other part of right foot with other specified severity; M86.8X7 Other osteomyelitis, ankle and foot; Z20.822 Contact with and (suspected) exposure to COVID-19; E11.21 Type 2 diabetes mellitus with diabetic nephropathy; E11.621 Type 2 diabetes mellitus with foot ulcer; E11.65 Type 2 diabetes mellitus with hyperglycemia; E66.01 Morbid (severe) obesity due to excess calories; E86.0 Dehydration; E88.09 Other disorders of plasma-protein metabolism, not elsewhere classified; E11.69 Type 2 diabetes mellitus with other specified complication; E78.5 Hyperlipidemia, unspecified; I16.0 Hypertensive urgency; Z68.32 Body mass index [BMI] 32.0-32.9, adult; Z79.84 Long term (current) use of oral hypoglycemic drugs
CPT/HCPCS: 36415; 36569; 71045; 73700; 75716; 80048; 80053; 80061; 80202; 81001; 82962; 83036; 83605; 83735; 84443; 85025; 85610; 85730; 87040; 87070; 87075; 87076; 87077; 87186; 87205; 93005; 93925; 96365; 96367; 99152; G0378; J0690; J0696; J1450; J1815; J2001; J2250; J2405; J2543; J2704; J3490; J7060

== ENCOUNTER 2022-07-31 12:00 | Emergency (ER) | payer OTHER, MEDICAID ==
[~2022-07-31] VITALS: Ht 182.9 cm; Wt 102.0 kg
[~2022-07-31 12:00] MED LIST: AML5T PO; AMOX500T86 PO; ASPI-325 PO; ATOR20TA50 PO; INSLANTI SC; INSREGI SC
[2022-07-31 13:15] VITALS: BP 139/81
[2022-07-31] MEDS ORDERED: METF-372 PO ×2 (13:35→13:36)
[2022-07-31] MEDS ORDERED: AMOX-277 PO (13:35)
[2022-07-31] MEDS ORDERED: ACET-1080 PO (13:49)
== END 2022-07-31 13:48 | disposition home or self-care (01) ==
LOC: ER 12:00
DX: E11.9 Type 2 diabetes mellitus without complications (principal); Z76.0 Encounter for issue of repeat prescription

== ENCOUNTER 2022-08-02 14:37 | Emergency (ER) | payer OTHER, MEDICAID ==
[~2022-08-02] VITALS: Ht 182.9 cm; Wt 110.0 kg
[~2022-08-02 14:37] MED LIST changes: +ACET-1080 PO; +AMOX-277 PO; +METF-372 PO
[2022-08-02 14:50] VITALS: BP 136/75
[2022-08-02] MEDS ORDERED: ATOR20TA50 PO (15:58)
[2022-08-02] MEDS ORDERED: AMLO-489 PO (15:58)
[2022-08-02] MEDS ORDERED: ASPI-498 OR (15:58)
[2022-08-02] MEDS ORDERED: AML5T PO (15:58)
== END 2022-08-02 16:10 | disposition home or self-care (01) ==
LOC: ER 14:37
DX: I10 Essential (primary) hypertension (principal); E11.9 Type 2 diabetes mellitus without complications; Z76.0 Encounter for issue of repeat prescription

== ENCOUNTER 2022-08-19 11:44 | Emergency (ER) | payer OTHER, MEDICAID ==
[~2022-08-19] VITALS: Ht 182.9 cm; Wt 112.0 kg
[~2022-08-19 11:44] MED LIST changes: +AMLO-489 PO; +ASPI-498 OR
[2022-08-19] MEDS ORDERED: AMOX-277 PO (16:39)
[2022-08-19 17:35] VITALS: BP 160/98
== END 2022-08-19 17:35 | disposition home or self-care (01) ==
LOC: ER 11:44
DX: L03.115 Cellulitis of right lower limb (principal); E11.621 Type 2 diabetes mellitus with foot ulcer; E11.65 Type 2 diabetes mellitus with hyperglycemia; I10 Essential (primary) hypertension; Z76.0 Encounter for issue of repeat prescription; Z79.4 Long term (current) use of insulin; Z79.82 Long term (current) use of aspirin; Z79.899 Other long term (current) drug therapy

== ENCOUNTER 2022-08-28 10:54 | Emergency (ER) | payer MEDICAID, OTHER ==
[~2022-08-28] VITALS: Ht 165.1 cm; Wt 112.5 kg
[2022-08-28 12:55] VITALS: BP 154/93
[2022-08-28] MEDS ORDERED: ACET-1079 PO (13:08)
[2022-08-28] MEDS ORDERED: AML5T GT (13:08)
[2022-08-28] MEDS ORDERED: ATOR20TA50 PO (13:08)
[2022-08-28] MEDS ORDERED: ASPI-498 OR (13:08)
[2022-08-28] MEDS ORDERED: METF-372 PO (13:08)
== END 2022-08-28 13:16 | disposition home or self-care (01) ==
LOC: ER 10:54
DX: E11.9 Type 2 diabetes mellitus without complications (principal); I10 Essential (primary) hypertension; Z76.0 Encounter for issue of repeat prescription; Z88.1 Allergy status to other antibiotic agents

== ENCOUNTER 2024-06-27 19:23 | Inpatient (IN) | payer MEDICAID ==
[~2024-06-27] VITALS: Ht 182.9 cm; Wt 79.3 kg
[~2024-06-27 19:23] MED LIST changes: +ACET-1079 PO; +AML5T GT; -AMLO-489 PO; +AMLO1TAB22 PO; -AMOX-277 PO; +AMOX875T4 PO
[2024-06-27 21:00] LABS: Basophils # (auto) 0.1 10 ^3/uL (0-0.2); Eosinophils # (auto) 0.3 10 ^3/uL (0-0.8); Eosinophils % (auto) 3.3 % (0.0-7.0); Hematocrit 44.1 % (41.0-53.0); Hemoglobin 14.8 g/dL (13.5-17.5); Lymphocytes # (auto) 1.8 10 ^3/uL (0.4-5.4); Lymphocytes % (auto) 17.4 % (10.0-50.0); Mean Corpuscular Hemoglobin 29.9 pg (28.0-32.0); Mean Corpuscular Hgb Conc. 33.5 g/dL (32.0-36.0); Monocytes % (auto) 10.1 % (0.0-12.0); Neutrophils # (auto) 6.9 10 ^3/uL (1.6-8.6); Neutrophils % (auto) 68.2 % (37.0-80.0); Nucleated Red Blood Cells % 0.1 %; Platelet Count (auto) 291 10^3/uL (140-450); Red Blood Cells 4.96 10^6/uL (4.5-5.90); Red Cell Distribution Width 13.9 % (11.8-14.3); White Blood Cell 10.1 10^3/uL (4.4-10.8)
[2024-06-27 21:14] LABS: Alanine Aminotransferase 20 U/L (7-40); Albumin 4.1 g/dL (3.2-4.8); Alkaline Phosphatase 77 U/L (46-116); Anion Gap 6 (5-15); Aspartate Aminotransferase 10 U/L (13-40); Blood Urea Nitrogen 23 mg/dL (9-23); Calcium 9.7 mg/dL (8.7-10.4); Carbon Dioxide 26 mmol/L (20-30); Chloride 109 mmol/L (98-107); Glucose 211 mg/dL (74-106); Potassium 4.3 mmol/L (3.5-5.1); Sodium 141 mmol/L (136-145)
[2024-06-27 21:15] LABS: Bilirubin, Total 0.5 mg/dL (0.2-1.0); Total Protein 7.1 g/dL (5.7-8.2)
[2024-06-27] MEDS: cloNIDine HCL 0.1 MG TAB PO ONE (22:09)
[2024-06-27] MEDS: SODIUM CHLORIDE 0.9% 1,000 ML IV ONE (22:59)
[2024-06-27] MEDS: CLINDAMYCIN 900MG IV 50 ML IV ONE (22:59)
[2024-06-28] MEDS: hydrALAZINE HCL 20 MG/ML VL IV ONE (00:37)
[2024-06-28] MEDS ORDERED: HYDROmorphone HCL 2 MG/ML VL/or syr IV PRN (02:45)
[2024-06-28] MEDS ORDERED: ONDANSETRON HCL 4 MG/2 ML VIAL IV PRN (02:45)
[2024-06-28] MEDS ORDERED: HYDROcodone-ACET 5/325MG TAB PO PRN (02:45)
[2024-06-28] MEDS ORDERED: ACETAMINOPHEN 325 MG TAB PO PRN (02:45)
[2024-06-28] MEDS ORDERED: DEXTROSE (50%) 50ML SYRG IV PRN (02:45)
[2024-06-28] MEDS ORDERED: DOCUSATE SOD 100 MG CAP PO PRN (02:45)
[2024-06-28] MEDS ORDERED: ceFAZolin 1GM/50ML 50 ML IV SCH (03:00)
[2024-06-28 03:10] LABS: Basophils # (auto) 0.1 10 ^3/uL (0-0.2); Basophils % (auto) 1.1 % (0.0-2.0); Eosinophils # (auto) 0.4 10 ^3/uL (0-0.8); Eosinophils % (auto) 3.8 % (0.0-7.0); Hematocrit 43.5 % (41.0-53.0); Hemoglobin 14.9 g/dL (13.5-17.5); Lymphocytes # (auto) 2.2 10 ^3/uL (0.4-5.4); Lymphocytes % (auto) 23.5 % (10.0-50.0); Mean Corpuscular Hemoglobin 30.5 pg (28.0-32.0); Mean Corpuscular Hgb Conc. 34.3 g/dL (32.0-36.0); Mean Corpuscular Volume 88.9 fL (80.0-100.0); Monocytes % (auto) 10.2 % (0.0-12.0); Neutrophils # (auto) 5.9 10 ^3/uL (1.6-8.6); Neutrophils % (auto) 61.4 % (37.0-80.0); Platelet Count (auto) 276 10^3/uL (140-450); White Blood Cell 9.5 10^3/uL (4.4-10.8)
[2024-06-28 03:29] LABS: Alanine Aminotransferase 20 U/L (7-40); Alkaline Phosphatase 75 U/L (46-116); Anion Gap 4 (5-15); Aspartate Aminotransferase 11 U/L (13-40); BUN/Creatinine Ratio 15.2 (10.0-20.0); Bilirubin, Total 0.6 mg/dL (0.2-1.0); Blood Urea Nitrogen 22 mg/dL (9-23); Calcium 9.5 mg/dL (8.7-10.4); Carbon Dioxide 29 mmol/L (20-30); Chloride 108 mmol/L (98-107); Glucose 202 mg/dL (74-106); Potassium 4.1 mmol/L (3.5-5.1); Sodium 141 mmol/L (136-145)
[2024-06-28 03:41] LABS: LDL Cholesterol 144 mg/dL (< 100); Triglycerides 254 mg/dL (< 150)
[2024-06-28 03:42] LABS: CRP High Sensitivity 0.51 mg/dL (<1.0)
[2024-06-28 03:43] LABS: Cholesterol 216 mg/dL (< 200); HDL Cholesterol 36 mg/dL (40-59)
[2024-06-28 04:11] LABS: Erythrocyte Sedimentation Rate 23 mm/hr (0-20)
[2024-06-28 04:12] VITALS: PULSE 71; RESP 18; O2SAT 98
[2024-06-28] MEDS: LACTATED RINGER'S 1,000 ML IV ONE (04:40)
[2024-06-28] MEDS: SODIUM CHLOR 0.9% PF (SALINE LOCK) 10ML VIAL/SYR IV SCH (06:09)
[2024-06-28] MEDS: ACETAMINOPHEN 325 MG TAB PO SCH (06:12)
[2024-06-28] MEDS: hydrALAZINE HCL 20 MG/ML VL IV PRN (07:00)
[2024-06-28] MEDS: InsuLIN REG 1unit/0.01ml Soln (100units/ml) SC SCH ×2 (07:05→22:00)
[2024-06-28] MEDS: ACCU-CHEK COMFORT CURVE STRIP VI SCH (07:09)
[2024-06-28] MEDS: ATORVASTATIN 20 MG TAB PO SCH (07:34)
[2024-06-28] MEDS: amLODIPine BESYLATE 5 MG TAB PO SCH (07:35)
[2024-06-28] MEDS: ASPirin-EC 81 mg tab PO SCH (07:39)
[2024-06-28] MEDS: INSULIN LANTUS (GLARGINE) 1 /0.01ml (100units/ml) SC SCH (07:42)
[2024-06-28 07:45] VITALS: PULSE 81; RESP 19; O2SAT 96
[2024-06-28] MEDS: PIPERACILLIN-TAZOB 3.375GM 100 ML IV ONE (08:19)
[2024-06-28] MEDS: PIPERACILLIN-TAZOB 3.375GM 100 ML IV SCH (11:41)
[2024-06-28 19:23] VITALS: RESP 18; O2SAT 96
[2024-06-28 21:20] VITALS: BP 185/94; PULSE 83; RESP 22; TEMP 98.4; O2SAT 93
[2024-06-28 22:56] VITALS: PULSE 83; RESP 22
[2024-06-29] VITALS (8 sets, daily range): BP systolic 110–181; BP diastolic 65–101; PULSE 73–85; RESP 18–21; TEMP 97.6–98.9; O2SAT 90–97
[2024-06-29] MEDS: FUROSEMIDE 100 MG/10ML VIAL IV ONE (00:04)
[2024-06-29] MEDS: FUROSEMIDE 100 MG/10ML VIAL IV SCH (06:06)
[2024-06-29 06:45] LABS: Alanine Aminotransferase 18 U/L (7-40); Albumin 3.9 g/dL (3.2-4.8); Alkaline Phosphatase 72 U/L (46-116); Anion Gap 5 (5-15); Aspartate Aminotransferase 18 U/L (13-40); BUN/Creatinine Ratio 15.8 (10.0-20.0); Bilirubin, Total 0.7 mg/dL (0.2-1.0); Blood Urea Nitrogen 25 mg/dL (9-23); Calcium 9.4 mg/dL (8.7-10.4); Carbon Dioxide 28 mmol/L (20-30); Chloride 108 mmol/L (98-107); Glucose 204 mg/dL (74-106); Sodium 141 mmol/L (136-145); Total Protein 6.7 g/dL (5.7-8.2)
[2024-06-29 06:46] LABS: Basophils # (auto) 0.1 10 ^3/uL (0-0.2); Basophils % (auto) 0.8 % (0.0-2.0); Eosinophils # (auto) 0.3 10 ^3/uL (0-0.8); Eosinophils % (auto) 2.9 % (0.0-7.0); Hematocrit 43.4 % (41.0-53.0); Hemoglobin 15.1 g/dL (13.5-17.5); Lymphocytes # (auto) 1.5 10 ^3/uL (0.4-5.4); Mean Corpuscular Hemoglobin 30.3 pg (28.0-32.0); Mean Corpuscular Hgb Conc. 34.7 g/dL (32.0-36.0); Mean Corpuscular Volume 87.4 fL (80.0-100.0); Monocytes # (auto) 1.2 10 ^3/uL (0-1.3); Monocytes % (auto) 10.6 % (0.0-12.0); Neutrophils # (auto) 8.2 10 ^3/uL (1.6-8.6); Neutrophils % (auto) 72.7 % (37.0-80.0); Platelet Count (auto) 265 10^3/uL (140-450); Red Blood Cells 4.97 10^6/uL (4.5-5.90); Red Cell Distribution Width 13.9 % (11.8-14.3); White Blood Cell 11.2 10^3/uL (4.4-10.8)
[2024-06-29] MEDS: amLODIPine BESYLATE 5 MG TAB PO SCH (08:35)
[2024-06-29] MEDS: ATORVASTATIN 20 MG TAB PO SCH (08:35)
[2024-06-29] MEDS: ACETAMINOPHEN 325 MG TAB PO ONE (09:09)
[2024-06-29] MEDS: ENOXAPARIN SOD 40 MG/0.4 ML SYRINGE SC SCH (09:10)
[2024-06-29 09:30] LABS: Urine Bacteria FEW /hpf (None Seen); Urine Blood Negative /uL (Negative); Urine Clarity Clear (Clear); Urine Color Colorless (Yellow); Urine Protein, UAD 1+ (Negative); Urine Specific Gravity 1.006 (1.001-1.035); Urine Urobilinogen Normal (Negative); Urine WBC <1 /hpf (0 - 3); Urine pH 6.5 (5.0-9.0)
[2024-06-29 09:48] LABS: Amphetamine Screen, Urine Neg (NEGATIVE)
[2024-06-29 09:49] LABS: Barbiturate Scree,Urine Neg (NEGATIVE); Benzodiazephine Screen, Urine Neg (NEGATIVE); Cannabinoid Screen, Urine Neg (NEGATIVE); Cocaine Screen, Urine Neg (NEGATIVE); Opiate Scree,Urine Neg (NEGATIVE); Phencyclidine Screen, Urine Neg (NEGATIVE)
[2024-06-29 09:54] LABS: Creatinine, Urine 12.62 mg/dL (30.0-125.0)
[2024-06-29 11:42] LABS: Protein, Urine 51.6 mg/dL (0.0-11.9); Urine Protein/Creatinine Ratio 4.09
[2024-06-29] MEDS: METOPROLOL TARTRATE 25 MG TAB PO SCH ×2 (11:53→16:00)
[2024-06-29 15:23] LABS: COVID19 ANTIGEN SOFIA FIA NEGATIVE (NEGATIVE)
[2024-06-29] MEDS ORDERED: InsuLIN REG 1unit/0.01ml Soln (100units/ml) SC SCH (17:00)
[2024-06-29] MEDS: InsuLIN REG 1unit/0.01ml Soln (100units/ml) SC SCH ×2 (17:47→22:14)
[2024-06-29] MEDS: cefTRIAXone 1GM/50ML D5W 50 ML IV SCH (17:52)
[2024-06-29] MEDS: ERGOCALCIFEROL 50,000 UNIT(1.25MG) CAP PO SCH (18:40)
[2024-06-29] MEDS: CYANOCOBALAMIN (B-12) 1000 MCG/1 ML VIAL SUBCUT ONE (18:41)
[2024-06-30] VITALS (10 sets, daily range): BP systolic 112–187; BP diastolic 65–97; PULSE 72–87; RESP 17–24; TEMP 97.8–99; O2SAT 21–94
[2024-06-30 06:30] LABS: Basophils # (auto) 0.1 10 ^3/uL (0-0.2); Basophils % (auto) 1.3 % (0.0-2.0); Eosinophils # (auto) 0.4 10 ^3/uL (0-0.8); Hematocrit 44.1 % (41.0-53.0); Hemoglobin 15.4 g/dL (13.5-17.5); Lymphocytes # (auto) 1.9 10 ^3/uL (0.4-5.4); Lymphocytes % (auto) 19.8 % (10.0-50.0); Mean Corpuscular Hemoglobin 30.8 pg (28.0-32.0); Mean Corpuscular Hgb Conc. 34.8 g/dL (32.0-36.0); Mean Corpuscular Volume 88.5 fL (80.0-100.0); Monocytes # (auto) 1.1 10 ^3/uL (0-1.3); Monocytes % (auto) 11.6 % (0.0-12.0); Neutrophils # (auto) 6.2 10 ^3/uL (1.6-8.6); Neutrophils % (auto) 63.3 % (37.0-80.0); Nucleated Red Blood Cells % 0.1 %; Platelet Count (auto) 289 10^3/uL (140-450); Red Blood Cells 4.99 10^6/uL (4.5-5.90); Red Cell Distribution Width 13.6 % (11.8-14.3); White Blood Cell 9.7 10^3/uL (4.4-10.8)
[2024-06-30 06:31] LABS: Alanine Aminotransferase 19 U/L (7-40); Alkaline Phosphatase 74 U/L (46-116); Anion Gap 9 (5-15); Aspartate Aminotransferase 13 U/L (13-40); BUN/Creatinine Ratio 13.9 (10.0-20.0); Blood Urea Nitrogen 24 mg/dL (9-23); Calcium 9.5 mg/dL (8.7-10.4); Carbon Dioxide 28 mmol/L (20-30); Chloride 104 mmol/L (98-107); Glucose 140 mg/dL (74-106); Potassium 3.6 mmol/L (3.5-5.1); Sodium 141 mmol/L (136-145)
[2024-06-30 06:32] LABS: Bilirubin, Total 0.5 mg/dL (0.2-1.0); Total Protein 6.9 g/dL (5.7-8.2)
[2024-06-30] MEDS: FUROSEMIDE 100 MG/10ML VIAL IV SCH (10:45)
[2024-06-30] MEDS: hydrALAZINE HCL 25 MG TAB PO SCH (10:49)
[2024-07-01] VITALS (7 sets, daily range): BP systolic 135–151; BP diastolic 65–87; PULSE 70–72; RESP 18–19; TEMP 36.3; O2SAT 91–94
[2024-07-01 06:59] LABS: Basophils # (auto) 0.1 10 ^3/uL (0-0.2); Basophils % (auto) 0.9 % (0.0-2.0); Eosinophils # (auto) 0.4 10 ^3/uL (0-0.8); Eosinophils % (auto) 4.1 % (0.0-7.0); Hemoglobin 15.6 g/dL (13.5-17.5); Lymphocytes # (auto) 2.5 10 ^3/uL (0.4-5.4); Lymphocytes % (auto) 24.3 % (10.0-50.0); Mean Corpuscular Hemoglobin 30.3 pg (28.0-32.0); Mean Corpuscular Hgb Conc. 33.9 g/dL (32.0-36.0); Mean Corpuscular Volume 89.2 fL (80.0-100.0); Monocytes # (auto) 1.3 10 ^3/uL (0-1.3); Monocytes % (auto) 12.5 % (0.0-12.0); Neutrophils # (auto) 5.9 10 ^3/uL (1.6-8.6); Neutrophils % (auto) 58.2 % (37.0-80.0); Platelet Count (auto) 291 10^3/uL (140-450); Red Blood Cells 5.15 10^6/uL (4.5-5.90); White Blood Cell 10.1 10^3/uL (4.4-10.8)
[2024-07-01 07:14] LABS: Alanine Aminotransferase 29 U/L (7-40); Alkaline Phosphatase 74 U/L (46-116); Anion Gap 5 (5-15); Aspartate Aminotransferase 25 U/L (13-40); Bilirubin, Total 0.5 mg/dL (0.2-1.0); Blood Urea Nitrogen 29 mg/dL (9-23); Calcium 9.4 mg/dL (8.7-10.4); Carbon Dioxide 32 mmol/L (20-30); Chloride 104 mmol/L (98-107); Glucose 131 mg/dL (74-106); Potassium 3.9 mmol/L (3.5-5.1); Sodium 141 mmol/L (136-145)
[2024-07-01] MEDS ORDERED: MET25T PO (14:17)
[2024-07-01] MEDS ORDERED: ERGO1CAP23 PO (14:17)
[2024-07-01] MEDS ORDERED: FURO20TA3 PO (14:17)
[2024-07-01] MEDS ORDERED: HYDR25TA87 PO (14:17)
== END 2024-07-01 14:56 | disposition home or self-care (01) | DRG 469 ==
LOC: ER 19:23 → OVERFLOW 06-28 02:40 → EAST 06-28 21:22
PROVIDERS: ADMIT Internal Medicine Pulmonary Disease; ATTEND Internal Medicine Pulmonary Disease
DX: N17.9 Acute kidney failure, unspecified (principal); I50.33 Acute on chronic diastolic (congestive) heart failure; E87.3 Alkalosis; L03.115 Cellulitis of right lower limb; L03.116 Cellulitis of left lower limb; L97.529 Non-pressure chronic ulcer of other part of left foot with unspecified severity; E11.22 Type 2 diabetes mellitus with diabetic chronic kidney disease; I13.0 Hypertensive heart and chronic kidney disease with heart failure and stage 1 through stage 4 chronic kidney disease, or unspecified chronic kidney disease; E11.621 Type 2 diabetes mellitus with foot ulcer; Z20.822 Contact with and (suspected) exposure to COVID-19; N18.31 Chronic kidney disease, stage 3a; I16.1 Hypertensive emergency; E66.01 Morbid (severe) obesity due to excess calories; E55.9 Vitamin D deficiency, unspecified; E78.5 Hyperlipidemia, unspecified; E11.51 Type 2 diabetes mellitus with diabetic peripheral angiopathy without gangrene; I73.9 Peripheral vascular disease, unspecified; N39.0 Urinary tract infection, site not specified; Z91.119 Patient's noncompliance with dietary regimen due to unspecified reason; Z79.4 Long term (current) use of insulin; Z79.899 Other long term (current) drug therapy; Z79.84 Long term (current) use of oral hypoglycemic drugs; Z79.82 Long term (current) use of aspirin; Z68.41 Body mass index [BMI] 40.0-44.9, adult
CPT/HCPCS: 36415; 71045; 73620; 76775; 80053; 80061; 80307; 81001; 82010; 82043; 82306; 82570; 82607; 82746; 82962; 83036; 83880; 84156; 84300; 84443; 85025; 85652; 86141; 87086; 87426; 93306; 93925; 93971; 96361; 96365; 96366; 96367; 96372; 96375; G0378; J1815; J2543; J3490